=== PATIENT | female | born 1970 | race Caucasian/White ===

== ENCOUNTER 2016-11-21 00:52 | Emergency (ER) | payer OTHER ==
[~2016-11-21] VITALS: Ht 167.6 cm; Wt 63.5 kg
[2016-11-21] MEDS ORDERED: SODIUM CHLORIDE 0.9% 1,000 ML IVB ONE (01:10)
[2016-11-21] MEDS ORDERED: HYDROmorphone HCL 2 MG/ML VL IV ONE ×3 (01:15→08:00)
[2016-11-21] MEDS ORDERED: ONDANSETRON HCL 4 MG/2 ML VIAL IV ONE ×3 (01:15→08:00)
[2016-11-21] MEDS ORDERED: BACITRACIN TOP OINT 1 UD PKG TOP ONE (01:49)
[2016-11-21] MEDS ORDERED: ETOMIDATE (2MG/ML) 20ML VIAL IV ONE (02:00)
[2016-11-21] MEDS ORDERED: SODIUM CHLORIDE 0.9% 500 ML IV ONE (08:15)
[2016-11-21 08:53] VITALS: BP 103/67
== END 2016-11-21 08:58 | disposition short-term general hospital (02) ==
LOC: ER 00:52
DX: S82.842A Displaced bimalleolar fracture of left lower leg, initial encounter for closed fracture (principal); X50.1XXA Overexertion from prolonged static or awkward postures, initial encounter; Y93.89 Activity, other specified; Y92.89 Other specified places as the place of occurrence of the external cause; Y99.8 Other external cause status
CPT/HCPCS: 27840; 73610; 93005; 96361; 96374; 96375; 96376; 99152; 99291; J1170; J2405; J7030; J7040